=== PATIENT | male | born 1975 | race Caucasian/White ===

== ENCOUNTER → 2017-08-14 | Outpatient (CLI) | payer OTHER ==
--- NOTE | 2017-08-16 17:28 | 24HR ---
[place] [address] HOLTER MONITOR REPORT Name: ANNABEL WEAVER Room: [facility]#: [id number] Admission: 08/14/17 Attend Phys: Manuela Coronado Discharge: Date of : 79 Date of Service: 08/16/17 1222 Report #: [id number] THIS REPORT FOR: //name// [facility] Test Date: 2017-08-16 Test Time: 12:22:45 Pat Name: ANNABEL WEAVER Department: Room: Gender: [place] Winder: : 1975 Requested By: Malcolm Jiang Order Number: [id number] Reading MD: Ramón Breaux Interpretive Statements 24-hour Holter monitor The patient was monitored for 24 hours. The basic underlying rhythm is normal sinus. The mean heart rate was 78 bpm. The maximum heart rate was 174 bpm corresponding with sinus tachycardia. The minimum heart rate was 42 bpm corresponding with sinus bradycardia. The patient exhibited tachycardia to find his heart rate greater than 100 bpm 12% of the monitored phase. The patient exhibited bradycardia defined as heart rate less than 50 bpm less than 1% of the monitored phase. There was a single PVC noted during the monitored phase. No other ventricular ectopy was noted. Rare premature atrial contractions were noted. There were no episodes of nonsustained or sustained supraventricular arrhythmia noted. There were no significant pauses and rhythm. There was no evidence of underlying atrial fibrillation or flutter. A diary was submitted with this Holter monitor with no symptoms reported. Electronically Signed On 08-16-2017 17:28:02 CUSTOMER SUPPORT REPRESENTATIVE by Ramón Breaux [email or web address] <ELECTRONICALLY SIGNED> By: Ramón Breaux MD, [facility] 08/16/17 1728 1222 1222 Ramón Breaux MD, [facility] /EPI
== END ==
LOC: M.CRD 10:53
DX: I49.8 Other specified cardiac arrhythmias (principal)